=== PATIENT | female | born 1960 | race Caucasian/White ===

== ENCOUNTER 2023-10-17 16:42 | Emergency (ER) | payer OTHER, SELFPAY ==
[2023-10-17 16:45] VITALS: BP 156/88; PULSE 64; RESP 18; TEMP 36.3; O2SAT 98; BMI 30.4
--- NOTE | 2023-10-17 16:53 | ED_ITS ---
HPI - General Adult General Chief complaint: Headache/Migraine Stated complaint: Migraine Time Seen by Provider: 10/17/23 16:44 History of Present Illness HPI narrative: Patient is a pleasant 63-year-old female who has had a longstanding history of migraine headaches. She is on metoprolol to try and suppress them. She has an abortive medication of butalbital as well. She reports a headache today onset it has been typical for her migraines but significant in terms of discomfort, sh pablo is photophobic, describes it is in her frontal area. No nuchal rigidity. No thunderclap nature to her headache. She has been in the ER for medication in the past she reports. She has not had allergies to medicines. No focal neurologic complaints. She does typically get some visual changes some tingling in her hands bilaterally when she gets a migraine and this is occurring. No stiffness in the neck as mention. No vomiting Related Data Home Medications ?Medication ?Instructions ?Recorded ?Confirmed aspirin 325 mg tablet 325 mg PO DAILY 10/17/23 10/17/23 uawszxynas-yzpypiumiqick-sjlkmdie tab PO 10/17/23 50 mg-325 mg-40 mg tablet metoprolol succinate 50 mg 50 mg PO DAILY 10/17/23 10/17/23 tablet,extended release 24 hr Review of Systems Status of ROS: Reports: 6 or more systems reviewed and unremarkable except as noted in History and below PFSH [facility] Social History Smoking Status: Never smoker Do you use any of these nicotine containing products: None Second hand tobacco smoke exposure: No How often do you have a drink containing alcohol: monthly or less How often do you have six or more drinks on one occasion: Never AUDIT-C Alcohol total score: 1 Non-prescribed substance use: denies use Exam Narrative: Exam Narrative: Objective: Vital signs oral slightly elevated blood pressure, afebrile Moderate distress and discomfort she is alert orient x3, noncyanotic, just slightly pale. Patient moves all extremities, has no facial asymmetry, consider extraocular movements are intact. No pupillary abnormalities. Const: Vital Signs, click to edit/add: Vital Signs - 24 hr 10/17/23 16:45 10/17/23 18:08 10/17/23 18:15 Temperature 97.4 F L Pulse Rate 72 75 Pulse Rate [Right Pulse Oximeter] 64 Respiratory Rate 18 Blood Pressure Blood Pressure [Ri ght Upper Arm] 156/88 H Pulse Oximetry 98 95 100 Oxygen Delivery Me thod Room Air 10/17/23 18:25 10/17/23 18:30 10/17/23 18:45 Temperature Pulse Rate 74 68 72 Pulse Rate [Right Pulse Oximeter] Respiratory Rate Blood Pressure 138/77 Blood Pressure [Ri ght Upper Arm] Pulse Oximetry 100 91 98 Oxygen Delivery Me thod Course Vital Signs Vital signs: Initial Vital Signs Temperature 97.4 F L 10/17/23 16:45 Temperature Source Temporal Artery Scan 10/17/23 16:45 Pulse Rate 64 10/17/23 16:45 Respiratory Rate 18 10/17/23 16:45 Blood Pressure 156/88 H 10/17/23 16:45 Blood Pressure Mean 110 H 10/17/23 16:45 Blood Pressure Position Sitting 10/17/23 16:45 Pulse Oximetry 98 10/17/23 16:45 Oxygen Delivery Method Room Air 10/17/23 16:45 Vital Signs Temperature 97.4 F L 10/17/23 16:45 Pulse Rate 64 10/17/23 16:45 Respiratory Rate 18 10/17/23 16:45 Blood Pressure 156/88 H 10/17/23 16:45 Pulse Oximetry 98 10/17/23 16:45 Oxygen Delivery Method Room Air 10/17/23 16:45 Temperature 97.4 F L 10/17/23 16:45 Pulse Rate 72 10/17/23 18:45 Respiratory Rate 18 10/17/23 16:45 Blood Pressure 138/77 10/17/23 18:25 Pulse Oximetry 98 10/17/23 18:45 Oxygen Delivery Method Room Air 10/17/23 16:45 Medications Administered Medications: Discontinued Medications Generic Name Dose Route Start Last Admin Trade Name Freq PRN Reason Stop Dose Admin Diphenhydramine HCl 50 mg 10/17/23 16:51 10/17/23 17:19 Diphenhydramine 50 Mg/Ml Inj IVP 10/17/23 16:52 50 mg ONCE ONE Administration Sodium Chloride 1,000 mls @ 6,000 mls/hr 10/17/23 17:00 10/17/23 17:31 0.9 % Sodium Chloride 1000 Ml IV 10/17/23 17:09 6,000 mls/hr .Q10M ELEANOR Administration Metoclopramide HCl 10 mg/ 102 mls @ 306 mls/hr 10/17/23 16:51 10/17/23 17:19 Sodium Chloride IV 10/17/23 16:52 306 mls/hr ONCE ONE Administration Ketorolac Tromethamine 30 mg 10/17/23 16:51 10/17/23 17:18 Ketorolac 30 Mg/Ml Inj IVP 10/17/23 16:52 30 mg ONCE ONE Administration Morphine Sulfate 4 mg 10/17/23 17:54 10/17/23 18:19 Morphine 4 Mg/Ml Inj IVP 10/17/23 17:55 4 mg ONCE ONE Administration Medical Decision Making MDM Narrative Medical decision making narrative: 63-year-old female with a history of migraine headaches with a migraine-type headache. I think at this point will give her fluid, check her labs for completeness but also give her Toradol, Benadryl, Reglan. I think the fluid in the medication will help her headaches substantially will allow to go home rest light activity. Will have her follow up with regular doctor the next few days. Will do further workup pending her clinical response. Addendum 6:32 p.m. the patient got morphine feels a little better. At this point her labs look reassuring, her glucose nonfasting is a little elevated 170, she probably should have this retested fasting. Would recommend continue home medications, light activity at home. Will observe for little bit longer and then discharged home when she is feeling substantially better. Lab Data Labs: Lab Results 10/17/23 Range/Units 17:10 WBC 5.77 (4.50-11.00) K/uL RBC 4.42 (4.00-5.20) m/uL Hgb 13.1 (12.0-16.0) gm/dL Hct 39.5 (33.0-51.0) % MCV 89 (80-100) fL MCH 30 (26-34) pg MCHC 33 (32-36) gm/dL RDW Coeff of Jimbo 11.5 (11.5-15.5) % Plt Count 244 (140-440) K/uL Neut % (Auto) 76.2 H (42.0-72.0) % Lymph % (Auto) 19.8 L (20-44) % [place] % (Auto) 2.9 (0.0-11.0) % Eos % (Auto) 0.7 (0.0-7.0) % Baso % (Auto) 0.2 (0.0-3.0) % Neut # (Auto) 4.40 (1.7-7.0) K/uL Lymph # (Auto) 1.10 (0.90-2.90) K/uL [place] # (Auto) 0.20 (0.00-0.90) K/UL Eos # (Auto) 0.04 (0.00-0.50) K/uL Baso # (Auto) 0.01 (0.00-0.30) K/uL Abs Immat Gran (auto) 0.01 (0.00-0.30) K/uL Imm/Tot Granulo (auto) 0.2 % Sodium 146 (135-149) mmol/L Potassium 4.3 (3.6-5.1) mmol/L Chloride 109 (96-114) mmol/L Carbon Dioxide 21 (20-32) mmol/L Anion Gap 16 H (7-15) mEq/L BUN 14 (7-30) mg/dL Creatinine 0.6 (0.5-1.5) mg/dL Estimated Creat Clear 58.09 Estimated GFR 101 ml/min Glucose 170 H (60-115) mg/dL Calcium 9.6 (8.4-10.6) mg/dL C-Reactive Protein < 0.5 L (0.5-1.0) mg/dL Discharge Plan Discharge Clinical Impression: Migraine Patient Disposition: Home w/ Parent or Adult Condition: Improved Additional Instructions: Light activity, continue home medications as prescribed, follow up with regular doctor next few days, recommend light activity for the next 48 hours. Good amount of fluid intake. Recommend recheck fasting sugar as her blood sugar was 170. Activity Level: Light activity Discharge Diet: Regular Prescriptions: No Action aspirin 325 mg tablet 325 mg PO DAILY metoprolol succinate 50 mg tablet extended release 24 hr 50 mg PO DAILY dlvoariktj-fkdavdfzhmpiy-brhm 50-325-40 mg tablet PO Follow Up/Referrals: Kasandra Quevedo MD [Primary Care Provider] - Stand Alone Forms: [employer] Info Instructions
[2023-10-17] MEDS: KETOROLAC 30 MG/ML inj IVP (17:18)
[2023-10-17] MEDS: METOCLOPRAMIDE HCL 10 MG in 0.9 % SODIUM CHLORIDE 100 ml 100 ML 306 MG IV (17:19)
[2023-10-17] MEDS: diphenhydrAMINE 50 MG/ML inj IVP (17:19)
[2023-10-17] MEDS: 0.9 % SODIUM CHLORIDE 1000 ml 1,000 ML 6000 ML IV (17:31)
[2023-10-17 17:52] LABS: Basophils Absolute Auto 0.01 K/uL (0.00-0.30); Basophils Percent Auto 0.2 % (0.0-3.0); Eosinophils Absolute Auto 0.04 K/uL (0.00-0.50); Eosinophils Percent Auto 0.7 % (0.0-7.0); Hematocrit 39.5 % (33.0-51.0); Hemoglobin* 13.1 gm/dL (12.0-16.0); Immature Granulocytes Abs Auto 0.01 K/uL (0.00-0.30); Immature Granulocytes Pct Auto 0.2 %; Lymphocytes Percent Auto 19.8 % (20-44); Mean Corpuscular HGB Conc 33 gm/dL (32-36); Mean Corpuscular Hemoglobin 30 pg (26-34); Mean Corpuscular Volume 89 fL (80-100); Monocytes Percent Auto 2.9 % (0.0-11.0); Neutrophils Percent Auto 76.2 % (42.0-72.0); Platelet Count* 244 K/uL (140-440); RDW Coefficient of Variation % 11.5 % (11.5-15.5); Red Blood Count 4.42 m/uL (4.00-5.20); White Blood Count* 5.77 K/uL (4.50-11.00)
[2023-10-17 17:59] LABS: Slide Review Reflex No
[2023-10-17 18:08] VITALS: PULSE 72; O2SAT 95
[2023-10-17 18:13] LABS: Chloride* 109 mmol/L (96-114)
[2023-10-17 18:14] LABS: Potassium* 4.3 mmol/L (3.6-5.1); Sodium* 146 mmol/L (135-149)
[2023-10-17 18:15] VITALS: PULSE 75; O2SAT 100
[2023-10-17 18:16] LABS: Creatinine* 0.6 mg/dL (0.5-1.5); Est. Creatinine Clearance* 58.09; Estimated Glomerular Filt Rate 101 ml/min
[2023-10-17 18:17] LABS: Anion Gap 16 mEq/L (7-15); Blood Urea Nitrogen* 14 mg/dL (7-30); Carbon Dioxide* 21 mmol/L (20-32); Glucose* 170 mg/dL (60-115)
[2023-10-17 18:18] LABS: Calcium* 9.6 mg/dL (8.4-10.6)
[2023-10-17] MEDS: MORPHINE 4 MG/ML INJ IVP (18:19)
[2023-10-17 18:25] VITALS: BP 138/77; PULSE 74; O2SAT 100
[2023-10-17 18:28] LABS: C Reactive Protein* < 0.5 mg/dL (0.5-1.0)
[2023-10-17 18:30] VITALS: PULSE 68; O2SAT 91
[2023-10-17 18:45] VITALS: PULSE 72; O2SAT 98
== END 2023-10-17 19:15 | disposition home or self-care (01) ==
PROVIDERS: Emergency Provider Family Medicine; PCP Family Medicine
DX: G43.909 Migraine, unspecified, not intractable, without status migrainosus (principal)
CPT/HCPCS: 36415; 80048; 85025; 86140; 96374; 96375; 99283; 99284; J1200; J1885; J2270; J2765; J7030

== ENCOUNTER 2024-08-27 14:17 | Emergency (ER) | payer OTHER, SELFPAY ==
[2024-08-27 14:22] VITALS: BP 139/86; PULSE 65; RESP 20; TEMP 36.9; O2SAT 97
--- NOTE | 2024-08-27 14:57 | ED_ITS ---
HPI - General Adult General Chief complaint: Headache/Migraine Stated complaint: migraine Time Seen by Provider: 08/27/24 14:57 History of Present Illness HPI narrative: Pt reports on/ off headaches for weeks and hx of migraines . This AM developed a migraine that feels different . Symptoms started around 1000 and include numbness in both hands and right side of head (both resolved now), pain in back of head, radiating more to right side. Reports some vision issues but unable to endorse specifically what they are, just feels off . Did take 2 different migraine meds, ineffective. A& Ox4 in triage and neuros appear intact. 64-year-old woman presenting to the emergency department with headache with some atypical features Headache seems to have escalated over the last few weeks. Just keep coming and she is tired of it. Does have a longer history though of migraines. Today though began with typical aura so after initial Excedrin attempt still with pain took butalbital. Began to also experience some right-sided ?weirdness?. Just felt off on the right side of her face. No focal weakness. Was experiencing more pain in the bilateral posterior neck sounds like than usual. Sensation in the face now has faded. She was also tingling in her hands bilaterally. This is not an atypical symptom. That has also faded. She would just like relief of her headache this point. Has never had any head imaging. Related Data Home Medications ?Medication ?Instructions ?Recorded ?Confirmed aspirin 325 mg tablet 325 mg PO DAILY 10/17/2307/07 zlhkjxstwk-uxiphmcooiqzr-dijhrioc tab PO 10/17/23 50 mg-325 mg-40 mg tablet metoprolol succinate 50 mg 50 mg PO DAILY 10/17/23 tablet,extended release 24 hr citalopram 10 mg tablet 10 mg PO DAILY 08/27/2408/14 Allergies Allergy/AdvReac Type Severity Reaction Status Date / Time No Known Drug Allergies Allergy Verified 08/27/24 14:27 Review of Systems Status of ROS: Reports: 6 or more systems reviewed and unremarkable except as noted in History and below [facility] Social History Smoking Status: Never smoker Do you use any of these nicotine containing products: None Second hand tobacco smoke exposure: No How often do you have a drink containing alcohol: monthly or less How often do you have six or more drinks on one occasion: Never AUDIT-C Alcohol total score: 1 Non-prescribed substance use: denies use Exam Narrative: Exam Narrative: Generally appears rather uncomfortable. Photophobic. Cranial nerves 2-12 intact. Pupils are 3 mm and equal. Moving all extremities without difficulty. Sensation intact. No exacerbated pain to occipital nerve pressure. Does not appear to be demonstrating any deficits here today. Heart in regular rate and rhythm. Breathing easily. Const: Vital Signs, click to edit/add: Vital Signs - 24 hr 08/27/24 14:22 Temperature 98.4 F Pulse Rate [Pulse Oximeter] 65 Respiratory Rate 20 Blood Pressure [Ri ght Upper Arm] 139/86 Pulse Oximetry 97 Oxygen Delivery Me thod Room Air Documenting provider has reviewed patient's vital signs: yes Course Vital Signs Vital signs: Initial Vital Signs Temperature 98.4 F 08/27/24 14:22 Temperature Source Temporal Artery Scan 08/27/24 14:22 Pulse Rate 65 08/27/24 14:22 Respiratory Rate 20 08/27/24 14:22 Blood Pressure 139/86 08/27/24 14:22 Blood Pressure Mean 103 08/27/24 14:22 Blood Pressure Position Sitting 08/27/24 14:22 Pulse Oximetry 97 08/27/24 14:22 Oxygen Delivery Method Room Air 08/27/24 14:22 Vital Signs Temperature 98.4 F 08/27/24 14:22 Pulse Rate 65 08/27/24 14:22 Respiratory Rate 20 08/27/24 14:22 Blood Pressure 139/86 08/27/24 14:22 Pulse Oximetry 97 08/27/24 14:22 Oxygen Delivery Method Room Air 08/27/24 14:22 Temperature 98.4 F 08/27/24 14:22 Pulse Rate 65 08/27/24 14:22 Respiratory Rate 20 08/27/24 14:22 Blood Pressure 139/86 08/27/24 14:22 Pulse Oximetry 97 08/27/24 14:22 Oxygen Delivery Method Room Air 08/27/24 14:22 Medications Administered Medications: Discontinued Medications Generic Name Dose Route Start Last Admin Trade Name Freq PRN Reason Stop Dose Admin Diphenhydramine HCl 25 mg 08/27/24 15:13 08/27/24 15:30 Diphenhydramine 50 Mg/Ml Inj IVP 08/27/24 15:14 25 mg ONCE ONE Administration Sodium Chloride 1,000 mls @ 1,000 mls/hr 08/27/24 15:13 08/27/24 17:16 0.9 % Sodium Chloride 1000 Ml IV 08/27/24 16:12 Infused .Q1H ONE Infusion Ketorolac Tromethamine 30 mg 08/27/24 15:13 08/27/24 15:30 Ketorolac 30 Mg/Ml Inj IVP 08/27/24 15:14 30 mg ONCE ONE Administration Ondansetron HCl 4 mg 08/27/24 15:13 08/27/24 15:31 Ondansetron 2 Mg/Ml Inj IVP 08/27/24 15:14 4 mg ONCE ONE Administration Medical Decision Making MDM Narrative Medical decision making narrative: This on the surface sounds to be a typical migraine but escalation is perhaps significant. She does not have any notable deficits at this time. I would at least offer her basic head CT. I do not think this represents ischemic stroke symptoms other than what might exist typically in a migraine. Will also treat her pain with IV hydration and typical migraine cocktail. CT imaging of her head by my independent review showed large calcified mass in the mid posterior superior mid brain. INDICATION: Escalating migraine TECHNIQUE: Non-contrast CT of the head is submitted. COMPARISON: None. FINDINGS: Along the posterior superior aspect of the falx cerebri, there is a large partially calcified dural-based lesion that measures 4.6 x 4.4 x 4.3 cm (2/46 and /). There is mild surrounding parenchymal hypodensity in the left parietal lobe. Mild remodeling and hypodensity of the overlying parietal calvarium. No acute intracranial hemorrhage. No midline shift. Basal cisterns are widely patent. IMPRESSION: Large dural-based lesion along the posterior superior aspect of the falx cerebri measures 4.6 cm, and likely reflects a meningioma. There is mild hypodensity in the adjacent left parietal lobe, indicating local parenchymal edema. This can be further characterized with an MRI brain without and with contrast. Please note that all CT scans at this facility use dose modulation, iterative reconstruction, and/or weight-based dosing when appropriate to reduce radiation dose to as low as reasonably achievable. Dictated by Jose Gardner MD @ 08/27/2024 3:59:31 PM Treatment with ketorolac diphenhydramine normal saline Zofran resulted in improvement in symptoms though still somewhat present, tolerable. Discussed concerns/findings as above with Ms. Newton I did discuss findings with Neurology and confirming proceeding with MRI of brain with and without contrast. I did review images of MRI. Large mass as noted above does appear to be contiguous with the meninges. Likely meningioma. No bleeding appreciated. Radiology over-read below INDICATION: Brain mass. COMPARISON: Five CT from earlier today. TECHNIQUE: Multiplanar T1, T2, FLAIR and diffusion-weighted imaging.. Post gadolinium T1 weighted sequences. Delete that gadolinium 15 cc IV. FINDINGS: Heterogeneous enhancing dural-based mass along the posterior falx and extending along the posterior medial parietal lobes bilaterally, left greater right most consistent with a meningioma. This mass measures 4.5 x 4 cm (series 10, image 82). Heterogeneous signal intensity and susceptibility artifact consistent with calcification better seen on CT. There is notable edema of the immediately adjacent parenchyma of the left parietal lobe. Meningioma extends into the posterior 3rd of the superior sagittal sinus. However, there is normal contrast filling of the remainder of the superior sagittal sinus both rostral and caudal to the mass No abnormal enhancement or enhanced lesions elsewhere. Normal brain parenchymal morphology. Scattered foci of T2/FLAIR signal hyperintensity within the white matter of frontal lobes are nonspecific and may represent chronic deep white matter small vessel ischemic changes or sequela migraine headache. No intracranial hemorrhage. No abnormal ventricular dilatation. Intracranial vascular flow voids are preserved. No mass effect or midline shift. No restricted diffusion to suggest acute ischemia. Developmental venous anomaly of the posterior left cerebellum which is an incidental finding. Bilateral orbits are unremarkable. Normal appearing sella. Visualized paranasal sinuses and mastoid air cells are unremarkable. IMPRESSION: 1. Heterogeneously enhancing dural-based mass along the posterior falx and extending along the posterior medial parietal lobes bilaterally, left greater than right consistent with a meningioma. Edema in the immediately adjacent parenchyma of the left parietal lobe. 2. Notable extension of meningioma into the posterior 3rd of superior sagittal sinus. However, there remains normal contrast filling of the superior sagittal sinus both rostral and caudal to the mass 3. No abnormal enhancement elsewhere. 4. No acute intracranial abnormality. Dictated by Semaj Lemus MD @ 08/27/2024 5:31:05 PM Discuss these findings and images were reviewed by neurosurgery in consult. They will be reaching out for next steps in care. Minimal edema and not recommended for steroids. See patient discharge plan for further discussion Stay well-hydrated. Stay active. Yes. Can take acetaminophen regularly dosed. Be seen for marked increase in uncontrolled pain, new and focal weakness or persistent loss of sensation, repeated vomiting. Today I did speak with Neurology and then Dr. Villa with neurosurgery through [facility]. Anticipate them reaching out to you to schedule an appointment for likely Sunday with him. Medical Records Medical records reviewed: Yes I reviewed the patient's medical records Discharge Plan Discharge Clinical Impression: Migraine, Meningioma Patient Disposition: Home w/ Parent or Adult Condition: Improved Additional Instructions: Stay well-hydrated. Stay active. Yes. Can take acetaminophen regularly dosed. Be seen for marked increase in uncontrolled pain, new and focal weakness or persistent loss of sensation, repeated vomiting. Today I did speak with Neurology and then Dr. Villa with neurosurgery through [facility]. Anticipate them reaching out to you to schedule an appointment for likely Sunday with him. Activity Level: No Restrictions Discharge Diet: Regular Prescriptions: No Action aspirin 325 mg tablet 325 mg PO DAILY metoprolol succinate 50 mg tablet extended release 24 hr 50 mg PO DAILY atbjdoxnur-nnlwtlonqfqlr-iefl 50-325-40 mg tablet PO citalopram 10 mg tablet 10 mg PO DAILY Follow Up/Referrals: Kasandra Quevedo MD [Primary Care Provider, [facility]] Stand Alone Forms: [employer] Info Instructions
--- NOTE | 2024-08-27 15:13 | CRLHL7_ITS ---
For Patients: As a result of the Century Cures Act, medical imaging exams and procedure reports are released immediately into your electronic medical record. You may view this report before your referring provider. If you have questions, please contact your health care provider. INDICATION: Escalating migraine TECHNIQUE: Non-contrast CT of the head is submitted. COMPARISON: None. FINDINGS: Along the posterior superior aspect of the falx cerebri, there is a large partially calcified dural-based lesion that measures 4.6 x 4.4 x 4.3 cm (46 and ). There is mild surrounding parenchymal hypodensity in the left parietal lobe. Mild remodeling and hypodensity of the overlying parietal calvarium. No acute intracranial hemorrhage. No midline shift. Basal cisterns are widely patent. IMPRESSION: Large dural-based lesion along the posterior superior aspect of the falx cerebri measures 4.6 cm, and likely reflects a meningioma. There is mild hypodensity in the adjacent left parietal lobe, indicating local parenchymal edema. This can be further characterized with an MRI brain without and with contrast. Please note that all CT scans at this facility use dose modulation, iterative reconstruction, and/or weight-based dosing when appropriate to reduce radiation dose to as low as reasonably achievable. Dictated by Jose Gardner MD @ 08/27/2024 3:59:31 PM (Electronically Signed)
[2024-08-27] MEDS: KETOROLAC 30 MG/ML inj IVP (15:30)
[2024-08-27] MEDS: diphenhydrAMINE 50 MG/ML inj 25 MG IVP (15:30)
[2024-08-27] MEDS: 0.9 % SODIUM CHLORIDE 1000 ml 1,000 ML IV (15:30)
[2024-08-27] MEDS: ONDANSETRON 2 MG/ML inj 4 MG IVP (15:31)
--- OUTSIDE RECORDS SUMMARY | 2024-08-27 16:18 | XMS_ITS | Clinical Summary ---
Author Organization [employer] [facility] [facility] Address [address] [place] [id number] Care Team Providers Care Control Officer Name Role Phone Kasandra Quevedo MD Primary Care Provide r Allergies No known active allergies Medications cetirizine (ZYRTEC) 10 mg tabletIndicatio ns:Migraine without status migrainosus, not intractable, unspecified migraine type Take 1 tablet by mouth once daily. 0 8 Active metroNIDAZOLE (METROGEL) 0.75 % gelIndications: Rosacea Apply topically to affected area(s) 2 times daily. 45 g 3 1 Active desonide 0.05% (TRIDESILON 0.05% CREAM) 0.05 % creamIndication s:Eyelid dermatitis, allergic/contac t Apply topically to affected area(s) two times daily. 15 g 1 3 Active metoprolol succinate (TOPROL XL) 50 mg sustained-relea se tabletIndicatio ns:Migraine without aura and without status migrainosus, not intractable Take 1 Tablet (50 mg) by mouth once daily. 100 Tablet 3 5 Active acetaminophen-c affeine-butalbi pat (FIORICET) 325-40-50 mgIndications:M igraine without aura and without status migrainosus, not intractable Take 1 Tablet by mouth every 4 hours if needed for Migraine. Max 6 doses per day. Max acetaminophen dose 4000mg in 24 hrs. 30 Tablet 2 5 Active citalopram (CELEXA) 10 mg tabletIndicatio ns:Generalized anxiety disorder Take 1 Tablet (10 mg) by mouth once daily in the morning. 90 Tablet 3 5 Active Active Problems Problem Noted Date Diagnosed Date Family history of diabetes mellitus 02/22/2016 Colon polyp 04/26/2011 Overview (01/12/2022): Colonoscopy 04/2011 polyp repeat in 5 years Colonoscopy 07/2016 polyp repeat in 5 years Colonoscopy 12/2021 normal, repeat in 7-10 years Acute gastritis without mention of hemorrhage Migraine, unspecified, witho ut mention of intractable migraine without mention of status migrainosus 06/29/2006 Rosacea 06/29/2006 Resolved Problems Problem Noted Date Diagnosed Date Resolved Date Globus sensation 09/27/2010 02/08/2011 Encounters Date Type Department Care Team Description 06/13/2024 10:05 AM WINTER SPORTS MANAGER Office Visit [facility] [address] [place] [address] Kasandra Quevedo MD Physical (64 yo Female) 06/13/2024 9:40 AM WINTER SPORTS MANAGER Ancillary Procedure [facility] [address] [place] [address] 06/13/2024 Travel 06/08/2024 Travel from Last 3 Months Immunizations Immunization Administration Dates Next Due AMB Influenza, IIV3 (Age >=3 years)(Flu Clinic Only) 02/10/2011,02/11/2010 AMB Influenza, IIV4 PF (=>6 mos Flulaval,Fluzone Fluarix)(Flu Clinic Only) 02/05/2020,02/27/2019,02/26/2018,2016 COVID-19 vaccine ([employer] [facility] [employer] 30mcg/0.3mL) PF, MDV 03/07/2021,08/03/2020,07/13/2020 DT (Age < 7 years) 02/14/2002 INFLUENZA, IIV3 PF (AGE >= 6 MO) 12/24/2023 Influenza, IIV3 (Age >=3 years) 03/14/2013,02/22 Influenza, IIV4 02/05/2023,,02/22/2016,2014,12/29/2013 Influenza, IIV4 (=>6mos) MDV 01/24/2022 Influenza,LAIV4 Live Intrana juan (Flumist) 02/04/2009 Tdap 07/07/2022,02/23/2012 Zoster (Shingrix-RZV, recombinant) 06/30/2019, Family History Medical History Relation Name Comments Diabetes Father age 80 Other Father headaches Cancer Mother Lung Hypertension Mother Diabetes Paternal Grandfather Anesthesia Problem No Family History Blood Disease No Family History Cancer-breast No Family History Cancer-ovarian No Family History Relation Name Status Comments Brother 1 Alive Brother 2 Alive Father Alive Maternal Grandfather Maternal Grandmother Mother Alive Paternal Grandfather Paternal Grandmother Sister Alive Social History Tobacco Use Types Packs/Day Years Used Date Smoking Tobacco: Never Passive Smoke Exposure: Never Smokeless Tobacco: Never Tobacco Cessation:Counseling Given: Not Answered Alcohol Use Standard Drinks/Week Comments Not Currently 0 (1 standard drink = 0.6 oz pur e alcohol) rare use PHQ-2 Answer Date Recorded PHQ-2 TOTAL SCORE 1 04/08/2024 Social Connections Answer Date Recorded Do you often feel lonely or isolated from those around you? 0 06/14/2023 Financial Resource Strain Answer Date R ecorded Difficulty of Paying Living Expenses 3 06/14/2023 Difficulty of Paying Living Expenses Not on file 06/14/2023 Food Insecurity Answer Date Recorded Do you worry your food will run out before you are able to buy more? 1 06/14/2023 Transportation Needs Answer Date Record ed Does lack of transportation keep you from medica l appointments? 1 06/14/2023 Does lack of transportation keep you from work, meetings or getting things that you need? 1 06/14/2023 Housing Stability Answer Date Recorded What is your housing situation today? 1 06/14/2023 Utilities Answer Date Recorded Do you have trouble paying f or utilities (for example, heat, electricity, water, phone)? 1 06/14/2023 Comments No Sex and Gender Information Value Date Recorded Sex Assigned at Not on file Legal Sex Female 5:41 AM WINTER SPORTS MANAGER Gender Identity Not on file Sexual Orientation Not on file Obstetrics History Para Term AB IAB SAB Ectopic Multiple Livin g Live Births 0 0 0 0 0 0 0 0 0 0 Last Filed Vital Signs Vital Sign Reading Time Taken Comments Blood Pressure 128/86 06/13/2024 10:24 AM WINTER SPORTS MANAGER Pulse 58 06/13/2024 10:24 AM WINTER SPORTS MANAGER Temperature 37 C (98.6 F) 03/19/2020 10:35 AM WINTER SPORTS MANAGER Respiratory Rate 16 03/24/2020 2:40 PM WINTER SPORTS MANAGER Oxygen Saturation 97% 06/13/2024 10:24 AM WINTER SPORTS MANAGER Inhaled Oxygen Concentration - - Weight 93.4 kg (206 lb) 06/13/2024 10:24 AM WINTER SPORTS MANAGER Height 167.6 cm (5' 6) 06/13/2024 10:24 AM WINTER SPORTS MANAGER Body Mass Index 33.25 06/13/2024 10:24 AM WINTER SPORTS MANAGER Plan of Treatment Health Maintenance Due Date Last Done Comments HIV for age 15-65 1975 Pneumococcal series for age 50+ (1 of 1 - PCV) 2010 Depression screening for age 12+ 04/08/2025 04/08/20 BMI (ht and wt on same day) for age 18+ 06/13/2025 06/13/2024, 06/14/2023, 02/06/2023, Additional history exists Mammogram for age 45-75 06/13/2025 06/13/19 25, 05/28/2023, 01/09/2022, Additional history exists Pap test for age 21-65 12/17/2025 , 12/17/2020, 02/22/2017, Additional history exists Lipids for age 45-75 01/10/2027 01/10/2022, 03/07/2019, 03/22/2018, Additional history exists Colonoscopy through age 75 01/12/202901/12, 01/12/2022, 01/12/2022, Additional history exists Tetanus booster 07/07/2032 07/07/2022, 1112/2011, 02/14/2002 [facility] RSV vaccine for adults or (1 - 1-dose 75+ series) 2035 Zoster (shingles) series for age 50+ Completed 06/30/2019, 03/25/2019 Hepatitis C screening for ag e 18-79 Completed 01/10/2022 Tdap Completed 07/07/2022, 02/23/2012 COVID-19 vaccine series Completed 12/24/19 24, 01/12/2023, 01/24/2022, Additional history exists Influenza Vaccine Completed 12/24/2023, , 01/24/2022, Additional history exists Procedures Procedure Name Priority Date/Time Associated Diagnosis Comments XR MAMMO RIA BILAT SCREEN Routine 06/13/2024 9:54 AM WINTER SPORTS MANAGER Encounter for screening mammogram for malignant neoplasm of breast COLONOSCOPY SCREENING Routine 01/12/2022 8:33 AM CDT History of colon polyps ANTI HCV Routine 01/10/2022 11:14 AM CDT Encounter for hepatitis C screening test for low risk patient LIPID PANEL W REFLEX MEASURED LDL Routine 01/10/2022 11:14 AM CDT Lipid screening HPV HIGH RISK Routine 12/17/2020 10:00 AM CDT Screening for cervical cancer from Last 3 Months or Most Recently Relevant to Health Maintenance Results * XR MAMMO RIA BILAT SCREEN (06/13/2024 9:54 AM WINTER SPORTS MANAGER) Anatomical Region Laterality Modality BREASTS, Breast Left, Breast Right Bilateral Mammography Impressions 06/13/2024 12:48 PM WINTER SPORTS MANAGER There is no radiographic evidence for malignancy. Recommend annual mammograms. MAMMOGRAM ASSESSMENT: ACR 1 Negative PATIENTS: You will also receive a letter with your examination results in an easy to read format. If you have questions about your results, please contact your referring provider. Narrative 06/13/2024 12:48 PM WINTER SPORTS MANAGER For Patients: As a result of the Century Cures Act, medical imaging exams and procedure reports are released immediately into your electronic medical record. You may view this report before your referring provider. If you have questions, please contact your health care provider. XR MAMMO RIA BILAT SCREEN [[id number]] CLINICAL HISTORY: This is an asymptomatic 64 y.o. patient. INDICATION FOR EXAM: Mammogram Screening. TECHNIQUE: CC and MLO views were obtained. This study was evaluated with the assistance of Computer-Aided Detection. Breast Tomosynthesis was used in interpretation. COMPARISON FILM: Yes 05/28/23 [facility] 01/09/22 [facility] FINDINGS: The breasts are almost entirely fatty. There are no dominant masses, suspicious micro calcifications or areas of architectural distortion. us Kasandra Quevedo MD MAMMO Final Result * COLONOSCOPY (01/12/2022 9:32 AM CDT) 01/12/2022 9:32 AM CDT Narrative Transcriptions Felix Burgos MD - 01/12/2022 10:06 AM CDT Patient Name: Ingrid Newton Procedure Date: 01/12/2022 Gender: Female Date of : 1960 Admit Type: Outpatient Procedure: Colonoscopy Proceduralist: Felix Burgos MD , Elina Juarez, RN (Nurse), Tiffany Vidales (Nurse) Referring MD: Felix Burgos Indications/Pre-Op Diagnosis: High risk colon cancer surveillance:Personal history of adenoma less than 10 mm in size, Last colonoscopy: July 2016 Medications: Fentanyl 100 micrograms IV, Midazolam 4 mgIV Procedure Description: The patient had risks, benefits and alternatives explained to andgave informed consent. The patient had a stable cardiopulmonary status and judged an adequate candidate for conscious sedation. The colonoscope was passed through the anus and advanced to thececum, identified by appendiceal orifice and ileocecal valve. Thecolonoscopy was performed without difficulty. The patient tolerated the procedure well. The quality of the bowel preparation was good. The ileocecal valve, appendiceal orifice, and rectum were photographed. Complications: No immediate complications. Estimated Blood Loss & Specimen: Estimated blood loss: none. Specimen collected - None Findings: The colon (entire examined portion) was moderately redundant. The exam was otherwise without abnormality. Impressions/Post-Op Diagnosis: - Redundant colon. - The examination was otherwise normal. - No specimens collected. Recommendation: - Patient has a contact number available for emergencies. The signsand symptoms of potential delayed complications were discussed with the patient. Return to normal activities tomorrow. Written discharge instructions were provided to the patient. - Continue present medications. - Repeat colonoscopy in 7-10 years for surveillance. Moderate Sedation: A time out was performed before the procedure. Moderate (conscious) sedation was administered by the endoscopy nurse and supervised bythe endoscopist. The following parameters were monitored: oxygensaturation, heart rate, blood pressure, EKG, CO2, respiratory rate, adequacy of pulmonary ventilation and reponse to care. Please refer to the patient's medical record flowsheets and nursing notes for moderate sedation details. Total physician intraservice time was 15 minutes. Felix Burgos MD 01/12/2022 10:06:31 AM This report has been signed electronically. Note Initiated On: 01/12/2022 9:32 AM Procedure Code(s): --- Professional --- 68938, Colonoscopy, flexible; diagnostic, including collection of specimen(s) bybrushing or washing, when performed (separateprocedure) Diagnosis Code(s): --- Professional --- Z86.010, Personal history of colonicpolyps Q43.8, Other specified congenitalmalformations of intestine CPT copyright 2020 [employer]. All rights reserved. The codes documented in this report are preliminary and upon water system operator reviewmay be revised to meet current compliance requirements. Scope In: 9:44:30 AM Scope Withdrawal Time 0 hours 6 minutes 37 seconds Scope Out: 9:58:55 AM us Felix Burgos MD PROCEDURE ORD Final Res ult * (ABNORMAL) LIPID PANEL W REFLEX MEASURED LDL (01/10/2022 11:14 AM CDT) CHOLESTEROL,TOTAL 208(H) 100 - 199 mg/dL 01/11/2022 7:14 AM CDT [facility] TRIGLYCERIDES 74 <150 mg/dL 01/11/2022 7:14 AM CDT [facility] HDL CHOLESTEROL 65 >40 mg/dL 7:14 AM CDT [facility] NON-HDL CHOLESTEROL 143 <145 mg/dl 01/11/2022 7:14 AM CDT [facility] CHOL/HDL RATIO 3.20 <4.50 01/11/2022 7:14 AM CDT [facility] LDL CHOLESTEROL 128 <=130 mg/dL 01/11/2022 7:14 AM CDT [facility] VLDL CHOLESTEROL 15 <=30 mg/dL 01/11/2022 7:14 AM CDT [facility] PROVIDER ORDERED STATUS RANDOM 01/11/2022 7:14 AM CDT [facility] Blood BLOOD SPECIMEN / Unknown Venipuncture / Unknown 01/10/2022 11:14 AM CDT 01/10/2022 11:17 AM CDT Kasandra Quevedo MD CHEMISTRY Final Result [facility] [address] [place] [address], [place] * ANTI HCV (01/10/2022 11:14 AM CDT) HEPATITIS C ANTIBODY Non-React bebe Non-React bebe 01/11/2022 3:45 PM CDT [facility] Comment:Antibodies to HCV no t detected; does not exclude the possibility of exposure to HCV. Blood BLOOD SPECIMEN / Unknown Venipuncture / Unknown 01/10/2022 11:14 AM CDT 01/10/2022 11:17 AM CDT Kasandra Quevedo MD SEND OUTS Final Result [facility] [address] * HPV HIGH RISK (12/17/2020 10:00 AM CDT) TYPE 16 Negative Negative 12/22/2020 4:14 PM CDT [facility] TYPE 18 Negative Negative 12/22/2020 4:14 PM CDT [facility] OTHER HIGH RISK TYPES Negative Negative 12/22/2020 4:14 PM CDT [facility] Other (Cervical) Non-Blood / Unknown 12/17/2020 10:00 AM CDT 12/21/2020 9:21 AM CDT Narrative [facility] - 12/22/2020 4:14 PM CDT HPV types 16, 18, 31, 33, 35, 39, 45, 51, 52, 56, 58, 59, 66 and 68 DNA were undetectable or below the pre-set threshold. Methodology: Elliot Nisreen 4800 HPV Test Kasandra Quevedo MD MICROBIOLOGY Final Result Performing Organization Address City/[facility] Co de Phone Number [facility] [address] from Last 3 Months or Most Recently Relevant to Health Maintenance Insurance [employer] [place] [id number] Care Teams Control Officer Relationship Specialty Start Date End Date Kasandra Quevedo MD [address] [place] [address] PCP - General 09/04/05
--- NOTE | 2024-08-27 16:24 | CRLHL7_ITS ---
For Patients: As a result of the Century Cures Act, medical imaging exams and procedure reports are released immediately into your electronic medical record. You may view this report before your referring provider. If you have questions, please contact your health care provider. INDICATION: Brain mass. COMPARISON: Five CT from earlier today. TECHNIQUE: Multiplanar T1, T2, FLAIR and diffusion-weighted imaging.. Post gadolinium T1 weighted sequences. Delete that gadolinium 15 cc IV. FINDINGS: Heterogeneous enhancing dural-based mass along the posterior falx and extending along the posterior medial parietal lobes bilaterally, left greater right most consistent with a meningioma. This mass measures 4.5 x 4 cm (series 10, image 82). Heterogeneous signal intensity and susceptibility artifact consistent with calcification better seen on CT. There is notable edema of the immediately adjacent parenchyma of the left parietal lobe. Meningioma extends into the posterior 3rd of the superior sagittal sinus. However, there is normal contrast filling of the remainder of the superior sagittal sinus both rostral and caudal to the mass No abnormal enhancement or enhanced lesions elsewhere. Normal brain parenchymal morphology. Scattered foci of T2/FLAIR signal hyperintensity within the white matter of frontal lobes are nonspecific and may represent chronic deep white matter small vessel ischemic changes or sequela migraine headache. No intracranial hemorrhage. No abnormal ventricular dilatation. Intracranial vascular flow voids are preserved. No mass effect or midline shift. No restricted diffusion to suggest acute ischemia. Developmental venous anomaly of the posterior left cerebellum which is an incidental finding. Bilateral orbits are unremarkable. Normal appearing sella. Visualized paranasal sinuses and mastoid air cells are unremarkable. IMPRESSION: 1. Heterogeneously enhancing dural-based mass along the posterior falx and extending along the posterior medial parietal lobes bilaterally, left greater than right consistent with a meningioma. Edema in the immediately adjacent parenchyma of the left parietal lobe. 2. Notable extension of meningioma into the posterior 3rd of superior sagittal sinus. However, there remains normal contrast filling of the superior sagittal sinus both rostral and caudal to the mass 3. No abnormal enhancement elsewhere. 4. No acute intracranial abnormality. Dictated by Semaj Lemus MD @ 08/27/2024 5:31:05 PM (Electronically Signed)
== END 2024-08-27 18:38 | disposition home or self-care (01) ==
PROVIDERS: Emergency Provider Family Medicine; PCP Family Medicine
DX: G43.909 Migraine, unspecified, not intractable, without status migrainosus (principal); D32.9 Benign neoplasm of meninges, unspecified; R20.2 Paresthesia of skin
CPT/HCPCS: 70450; 70553; 96361; 96374; 96375; 99284; 99285; A9575; J1200; J1885; J2405; J7030

== ENCOUNTER 2024-09-11 13:36 | Emergency (ER) | payer OTHER, SELFPAY ==
[2024-09-11] VITALS (18 sets, daily range): BP systolic 109–154; BP diastolic 70–79; PULSE 57–69; RESP 16–20; TEMP 36; O2SAT 91–99; BMI 32.5
--- OUTSIDE RECORDS SUMMARY | 2024-09-11 13:38 | XMS_ITS | Clinical Summary ---
Author Organization [employer] [employer] [facility] Address [address] [place] [address] Care Team Providers Care Net Trainer Name Role Phone Kasandra Quevedo MD Primary [...] daily in the morning. 90 Tablet 3 Active Active Problems Problem Noted Date Diagnosed Date Meningioma 09/02/2024 Family history of diabetes mellitus 02/22/2016 Colon [...] Encounters Date Type Department Care Team Description 09/11/2024 6:54 AM CDT Hospital Encounter [facility] [address] [place] [address] Meningioma (HC) 09/11/2024 Travel 09/10/2024 Orders Only [facility] [address] [place] [address] Kasandra Quevedo MD 1 scan: (1-Ord) NFLD-EKG-09/09/24 09/09/2024 3:30 PM CDT Office Visit [facility] [address] [place] [address] Kasandra Quevedo MD Pre-Op Exam (09/15/[address] Villa Bipartial craniotomy for resection of meningioma) 09/09/2024 Travel 09/04/2024 Travel 09/03/2024 Telephone [facility] [address] [place] [address] Ameena Mcdonough MD Imaging 09/02/2024 10:00 AM CDT Office Visit [facility] [address] [place] [phone] Melquiades Villa MD 09/02/2024 Orders Only [facility] [address] [place] [address] Melquiades Villa MD <No scans attached> 09/02/2024 Travel 08/29/2024 Travel 08/27/2024 Orders Only [facility] Scanner 1 scan: (1-Ord) [place], CT HEAD/BRAIN WO CON, 08/27/2024 08/27/2024 Orders Only [facility] Scanner 1 scan: (1-Ord) [place], MR HEAD/BRAIN WO/W CON, 08/27/2024 08/27/2024 Orders Only [facility] Scanner 1 scan: (1-Ord) [place], HEAD/BRAIN WO/W, 08/27/2024 08/27/2024 Orders Only [facility] Scanner 1 scan: (1-Ord) [facility], HEAD/BRAIN WO CON , 08/27/2024 06/13/2024 10:05 AM LEASE ADMINISTRATOR Office Visit [facility] [address] [place] [address] Kasandra Quevedo MD Physical (64 yo Female) 06/13/2024 9:40 AM LEASE ADMINISTRATOR Ancillary Procedure [facility] [address] [place] [address] 06/13/2024 Travel from Last 3 Months Immunizations Immunization Administration Dates Next Due AMB Influenza, IIV3 (Age >=3 years)(Flu Clinic Only) 02/10/2011,02/11/2010 AMB Influenza, IIV4 PF (=>6 mos Flulaval,Fluzone Fluarix)(Flu Clinic Only) 02/05/2020,02/27/2019,02/26/2018,2016 COVID-19 vaccine ([employer] NTTxtFeedback 30mcg/0.3mL) PF, MDV 03/07/2021,08/03/2020,07/13/2020 DT (Age < [...] or isolated from those around you? 0 09/04/2024 Financial Resource Strain Answer Date R ecorded Difficulty of Paying Living Expenses 3 09/04/2024 Difficulty of Paying Living Expenses Not on file 09/04/2024 Food Insecurity Answer Date Recorded Do you worry your food will run out before you are able to buy more? 1 09/04/2024 Transportation Needs Answer Date Record ed Does lack of transportation keep you from medica l appointments? 1 09/04/2024 Does lack of transportation keep you from work, meetings or getting things that you need? 1 09/04/2024 Housing Stability Answer Date Recorded What is your housing situation today? 1 09/04/2024 Utilities Answer Date Recorded Do you have trouble paying f or utilities (for example, heat, electricity, water, phone)? 1 09/04/2024 Comments No Sex and Gender Information Value Date Recorded Sex Assigned at Not on file Legal Sex Female 5:41 AM LEASE ADMINISTRATOR Gender Identity Not on file Sexual Orientation Not on file Obstetrics History Para Term AB IAB SAB Ectopic Multiple Livin g Live Births 0 0 0 0 0 0 0 0 0 0 Last Filed Vital Signs Vital Sign Reading Time Taken Comments Blood Pressure 159/63 09/11/2024 10:45 AM CDT Pulse 65 09/11/2024 10:45 AM CDT Temperature 36.7 C (98.1 F) 09/11/2024 7:45 AM CDT Respiratory Rate 12 09/11/2024 10:45 AM CDT Oxygen Saturation 100% 09/11/2024 10:45 AM CDT Inhaled Oxygen Concentration - - Weight 91.2 kg (201 lb) 09/09/2024 7:39 AM CDT Height 167.6 cm (5' 6) 09/09/2024 7:39 AM CDT Body Mass Index 32.44 09/09/2024 7:39 AM CDT Plan of Treatment Upcoming Encounters Date Type Department Care Team (Latest Contact Info) Description 09/14/2024 10:00 AM CDT Appointment [facility] [address] [place] [address] 09/15/2024 7:00 AM CDT Hospital Encounter [facility] [address], [place] [address] Melquiades Villa MD [address] [facility] [address] [place] [address] 09/15/2024 7:00 AM CDT - 09/15/2024 2:16 PM CDT Surgery [facility] [address] [place] [address] Melquiades Villa MD [address] [facility] [address] [place] [address] Biparietal craniotomy for resection of meningioma 09/15/2024 7:45 AM CDT Appointment [facility] [address] [place] [address] Scheduled Procedures Name Priority Associated Diagnoses Date/Ti me CRANIOTOMY INTRAOPERATIVE MRI Tier 2 Meningioma (HC) 09/15/2024 7:00 AM CDT Health Maintenance Due Date Last Done Comments HIV for age 15-65 1975 Pneumococcal series for age 50+ (1 of 1 - PCV) 2010 RSV vaccine for adults or (1 - Risk 60-74 years 1-dose series) 2020 Depression screening for age 12+ 04/08/2025 04/08/2024, 06/14/2023, 01/12/2022, Additional history exists Mammogram for age 45-75 06/13/2025 06/13/19 25, 05/28/2023, 01/09/2022, Additional history exists BMI (ht and wt on same day) for age 18+ 09/09/2025 09/09/2024, 06/13/2024, 06/14/2023, Additional history exists Pap test for age 21-65 12/17/2025 , 12/17/2020, 02/22/2017, Additional history exists Lipids for age 45-75 01/10/2027 01/10/2022, 03/07/2019, 03/22/2018, Additional history exists Colonoscopy through age 75 01/12/202901/12, 01/12/2022, 01/12/2022, Additional history exists Tetanus booster 07/07/2032 07/07/2022, 12/2011, 02/14/2002 ([facility] Zoster (shingles) series for age 50+ Completed 06/30/2019, 03/25/2019 Hepatitis C screening for age 18-79 Completed 01/10/2022 Tdap Completed 07/07/2022, 02/23/2012 COVID-19 vaccine series Completed 12/24/19, 01/12/2023, 01/24/2022, Additional history exists Influenza Vaccine Completed 12/24/2023, , 01/24/2022, Additional history exists Hepatitis B series for 19+ Aged Out N o longer eligible based on patient's age to complete this topic Procedures Procedure Name Priority Date/Time Associated Diagnosis Comments IR ANGIO CAROTID CEREBRAL BILATERAL Routine 09/11/2024 8:57 AM CDT Meningioma (HC) EKG 12 LEAD Routine 09/10/2024 9:46 AM CDT Preoperative examination [place] READING EKG - NO CHARGE, COMP ONLY Routine 09/10/2024 9:45 AM CDT Preoperative examination CBC W PLT NO DIFF Routine 09/09/2024 8:5 0 AM CDT Meningioma (HC) BASIC METABOLIC PANEL Routine 09/09/2024 8:50 AM CDT Meningioma (HC) PROTIME-INR Routine 09/09/2024 8:49 AM CDT Meningioma (HC) SCAN-CT INTERPRETATION 12:00 AM CDT SCAN-MRI INTERPRETATION 08/27/2024 12:00 AM CDT SCAN-MRI INTERPRETATION 08/27/2024 12:00 AM CDT SCAN-CT INTERPRETATION 12:00 AM CDT XR MAMMO RIA BILAT SCREEN Routine 06/13/2024 9:54 AM LEASE ADMINISTRATOR Encounter for screening mammogram for malignant neoplasm [...] Recently Relevant to Health Maintenance Results * IR ANGIO CAROTID CEREBRAL BILATERAL (09/11/2024 8:57 AM CDT) Anatomical Region Laterality Modality BRAIN X-Ray Angiograph y, Other, Other, Other Impressions 09/11/2024 9:51 AM CDT Diminished flow in the superior sagittal sinus in its proximal segment and complete occlusion at the site of the tumor and distal to it. The bulk of cerebral venous drainage is via enlarged cortical veins bilaterally, including the veins of Trolard. Small to moderate amount of vascular flow to the presumed parietal meningioma via branches of the middle meningeal arteries bilaterally. Findings were communicated to Dr. Villa at the conclusion of the examination. Ameena Mcdonough M.D. Neurointerventional Radiologist [facility] [place] Pager: Office/Referrals: [facility]: [email or web address] Narrative 09/11/2024 9:51 AM CDT PHYSICIAN: Ameena Mcdonough DATE: 09/11/2024. PROCEDURE: CEREBRAL ANGIOGRAM Selective catheter placement, right internal carotid artery, with angiography of the intracranial carotid circulation (CPT 37977) Selective catheter placement, right external carotid artery, with angiography of the external carotid circulation (CPT +34295) Selective catheter placement, left internal carotid artery, with angiography of the intracranial carotid circulation (CPT 27876) Selective catheter placement, left external carotid artery, with angiography of the external carotid circulation (CPT +23350) Selective catheter placement, right vertebral artery, with angiography of the vertebral circulation (CPT 08069) Selective catheter placement, left vertebral artery, with angiography of the vertebral circulation (CPT 21154) Ultrasound guidance for vascular access: right common femoral artery access (CPT +43926) Monitored conscious sedation: 34min (CPT 52729, CPT +89638) CLINICAL HISTORY: 64 year-old female with a meningioma invading the superior sagittal sinus presents for catheter angiography to assess the status of the superior sagittal sinus. MEDICATIONS: 1.5mg versed IV, 100mcg fentanyl IV, 4mg zofran, lidocaine for local anesthesia. CONSCIOUS SEDATION TIME: 34 min. SAMPLES: None. POST-PROCEDURE DIAGNOSIS: Diminished flow in the superior sagittal sinus in its proximal segment and complete occlusion at the site of the tumor and distal to it. The bulk of cerebral venous drainage is via enlarged cortical veins bilaterally, including the veins of Trolard. PROCEDURE: The risks, benefits and alternatives to cerebral angiogram were discussed with the patient and written informed consent was obtained. The patient was placed on the angio table and prepped and draped in the usual sterile fashion. TIME OUT was performed to confirm patient identity, materials and procedure type. Under physician supervision, midazolam and fentanyl were administered intravenously for moderate sedation. Pulse oximetry, heart rate, and blood pressure were continuously monitored by a trained, dedicated nurse. The physician who performed the procedure provided 34 minutes of intra-service time with the patient. 1% Xylocaine was utilized to anesthetize the skin. After successfully identifying a patent vessel and permanently archiving a picture for the patient's record, using ultrasound guidance a micropuncture needle was utilized with a single-wall puncture technique to perform a right common femoral percutaneous arterial puncture and a 5-British sheath was placed. Contrast was then injected via the sheath to assess the puncture site prior to placement of a closure device at the end of the procedure. Subsequently using a 5-British angled tip catheter and glidewire combination, selective catheterization was performed of the bilateral external, bilateral internal carotid arteries and bilateral vertebral arteries. Appropriate angiographic images were obtained. The catheter and sheath were then withdrawn and hemostasis was achieved with a closure device. Patient was returned to the recovery area in stable condition. FINDINGS: Right external carotid and internal carotid artery injections: There is diminished flow in the superior sagittal sinus in its proximal segment and complete occlusion at the site of the tumor and distal to it. The bulk of cerebral venous drainage is via enlarged cortical veins bilaterally, including the veins of Trolard. There is a small amount of vascular flow to the presumed parietal meningioma via branches of the right middle meningeal artery. The distal right internal carotid artery is normal. There is normal filling of the right anterior and middle cerebral arteries and their branches. The right posterior communicating artery is not patent. The anterior communicating artery is opacified from [id number]. Left external carotid and internal carotid artery injections: There is diminished flow in the superior sagittal sinus in its proximal segment and complete occlusion at the site of the tumor and distal to it. The bulk of cerebral venous drainage is via enlarged cortical veins bilaterally, including the veins of Trolard. There is a small to moderate amount of vascular flow to the presumed parietal meningioma via branches of the left middle meningeal artery. The distal left internal carotid artery is normal. There is normal filling of the left anterior and middle cerebral arteries and their branches. The left posterior communicating artery is not patent. The anterior communicating artery is not opacified from [id number]. Right vertebral artery injection: There is normal filling of the distal right vertebral artery, basilar artery, and posterior cerebral arteries bilaterally. There is also normal filling of the bilateral superior cerebellar, bilateral anterior-inferior cerebellar, and right posterior-inferior cerebellar arteries. Reflux filling of the distal left vertebral artery and its posterior-inferior cerebellar branch is not demonstrated. Left vertebral artery injection: There is normal filling of the distal left vertebral artery, basilar artery, and posterior cerebral arteries bilaterally. There is also normal filling of the bilateral superior cerebellar, bilateral anterior-inferior cerebellar, and left posterior-inferior cerebellar arteries. Reflux filling of the distal right vertebral artery and its posterior-inferior cerebellar branch is also demonstrated. Melquiades Villa MD IR Fi nal Result * EKG 12 LEAD (09/10/2024 9:46 AM CDT) Kasandra Quevedo MD EKG ORD Final Result * [place] READING EKG - NO CHARGE, COMP ONLY (09/10/2024 9:45 AM CDT) Kasandra Quevedo MD PB - PROVIDER READING S Final Result * CBC W PLT NO DIFF (09/09/2024 8:50 AM CDT) Pathologist [facility] WHITE BLOOD CELL COUNT 4.0 3.8 - 10.8 Thousand/u L [facility] RED BLOOD CELL COUNT 4.55 3.80 - 5.10 Million/uL [facility] HEMOGLOBIN 13.4 11.7 - 15.5 g/dL [facility] HEMATOCRIT 41.9 35.0 - 45.0 % [facility] MCV 92.1 80.0 - 100.0 fL [facility] MCH 29.5 27.0 - 33.0 pg [facility] MCHC 32.0 32.0 - 36.0 g/dL [facility] Comment: For adults, a slight decrease in the calculated MCHC value (in the range of 30 to 32 g/dL) is most likely not clinically significant; however, it should be interpreted with caution in correlation with other red cell parameters and the patient's clinical condition. RDW 12.8 11.0 - 15.0 % [facility] PLATELET COUNT 233 140 - 400 Thousand/u L [facility] MPV 10.5 7.5 - 12.5 fL [facility] Blood BLOOD SPECIMEN / Unknown 09/09/2024 8:50 AM CDT 09/09/2024 8:50 AM CDT Melquiades Villa MD HEMATOLOGY Fi nal Result Performing Organization Address City/[facility]/ZIP Co de Phone Number [employer] [facility] [address] [place] [address], [facility] [address] [place] [address] * BASIC METABOLIC PANEL (09/09/2024 8:50 AM CDT) [facility] GLUCOSE 88 65 - 99 mg/dL [facility] Comment: Fasting reference interval UREA NITROGEN (BUN) 16 7 - 25 mg/dL [facility] CREATININE 0.73 0.50 - 1.05 mg/dL [facility] EGFR 92 > OR = 60 mL/min/1. 73m2 [facility] BUN/CREATININE RATIO SEE NOTE: 6 - 22 (calc) [facility] Comment: Not Reported: BUN and Creatinine are within reference range. SODIUM 142 135 - 146 mmol/L [facility] POTASSIUM 5.0 3.5 - 5.3 mmol/L [facility] CHLORIDE 106 98 - 110 mmol/L [facility] CARBON DIOXIDE 29 20 - 32 mmol/L [facility] ELECTROLYTE BALANCE 7 7 - 17 mmol/L (calc) [facility] CALCIUM 9.6 8.6 - 10.4 mg/dL [facility] Blood BLOOD SPECIMEN / Unknown 09/09/2024 8:50 AM CDT 09/09/2024 8:50 AM CDT Melquiades Villa MD CHEMISTRY Fi nal Result Performing Organization Address [facility]/ZIP Co de Phone Number [employer] [facility] [address] [place] [address], [facility] [address] [place] [address] * PROTIME-INR (09/09/2024 8:49 AM CDT) INR 1.0 <1.3 09/09/2024 2:01 PM CDT [facility] PROTIME 11.0 10.6 - 12.4 sec 09/09/2024 2:01 PM CDT [facility] Blood BLOOD SPECIMEN / Unknown [facility] / Unknown 09/09/2024 8:49 AM CDT 09/09/2024 8:49 AM CDT Narrative [facility] - 09/09/2024 2:01 PM CDT Therapeutic Range 2.0-3.0 for most anticoagulated patients 2.5-3.5 or 4.0 for high risk patients The INR is only used for patients on stable oral anticoagulant therapy. It makes no significant contribution to the diagnosis or treatment of patients whose Protime is prolonged for other reasons. INR results are increased when heparin levels exceed 1.0 U/mL, which corresponds to an aPTT >125 seconds if the patient is on UFH. us Melquiades Villa MD HEMATOLOGY Fi nal Result [facility] [address] [place] [address], [place] * SCAN-MRI INTERPRETATION (08/27/2024 12:00 AM CDT) Only the most recent of2 resultswithin the time period is included. Anatomical Region Laterality Modality Other us Scanner OTHER Final Result * SCAN-CT INTERPRETATION (08/27/2024 12:00 AM CDT) Only the most recent of2 resultswithin the time period is included. Anatomical Region Laterality Modality Other us Scanner OTHER Final Result * XR MAMMO RIA BILAT SCREEN (06/13/2024 9:54 AM LEASE ADMINISTRATOR) Anatomical Region Laterality Modality BREASTS, Breast Left, Breast Right Bilateral Mammography Impressions 06/13/2024 12:48 PM LEASE ADMINISTRATOR There is no radiographic evidence for malignancy. Recommend annual mammograms. MAMMOGRAM ASSESSMENT: ACR 1 Negative PATIENTS: You will also receive a letter with your examination results in an easy to read format. If you have questions about your results, please contact your referring provider. Narrative 06/13/2024 12:48 PM LEASE ADMINISTRATOR For Patients: As a result of the Century Cures Act, medical imaging exams and procedure reports are released immediately into your electronic medical record. You may view this report before your referring provider. If you have questions, please contact your health care provider. XR MAMMO RIA BILAT SCREEN [[id number]] CLINICAL HISTORY: This is an asymptomatic 64 [...] Colonoscopy Proceduralist: Felix Burgos MD , Elina Juarez RN (Nurse), Tiffany Vidales (Nurse) Referring MD: [...] 9:32 AM Procedure Code(s): --- Professional --- 62270, Colonoscopy, flexible; diagnostic, including collection of specimen(s) bybrushing or washing, when performed (separateprocedure) Diagnosis Code(s): --- Professional --- Z86.010, Personal history of colonicpolyps Q43.8, Other specified congenitalmalformations of intestine CPT copyright 2020 [employer]. All rights reserved. The codes documented in this report are preliminary and upon sheet metal duct installer reviewmay be revised to meet current compliance requirements. Scope In: 9:44:30 AM Scope Withdrawal Time 0 hours 6 minutes 37 seconds Scope Out: 9:58:55 AM us Felix Burgos MD PROCEDURE ORD Final Res ult * (ABNORMAL) LIPID PANEL W REFLEX MEASURED LDL (01/10/2022 11:14 AM CDT) CHOLESTEROL,TOTAL 208(H) 100 - 199 mg/dL 01/11/2022 7:14 AM CDT [facility] TRIGLYCERIDES 74 <150 mg/dL 01/11/2022 7:14 AM CDT [facility] HDL CHOLESTEROL 65 >40 mg/dL 7:14 AM CDT [facility] NON-HDL CHOLESTEROL 143 <145 mg/dl 01/11/2022 7:14 AM CDT [facility] CHOL/HDL RATIO 3.20 <4.50 01/11/2022 7:14 AM CDT [facility] LDL CHOLESTEROL 128 <=130 mg/dL 01/11/2022 7:14 AM CDT [facility] VLDL CHOLESTEROL 15 <=30 mg/dL 01/11/2022 7:14 AM CDT [facility] PROVIDER ORDERED STATUS RANDOM 01/11/2022 7:14 AM CDT [facility] Blood BLOOD SPECIMEN / Unknown Venipuncture / Unknown 01/10/2022 11:14 AM CDT 01/10/2022 11:17 AM CDT Kasandra Quevedo MD CHEMISTRY Final Result Performing Organization Address City/[facility]/ZIP Co de Phone Number [facility] [address] [place] [address], * ANTI HCV (01/10/2022 11:14 AM CDT) HEPATITIS C ANTIBODY Non-React bebe Non-React bebe 01/11/2022 3:45 PM CDT [facility] Comment:Antibodies to HCV no t detected; does not exclude the possibility of exposure to HCV. Blood BLOOD SPECIMEN / Unknown Venipuncture / Unknown 01/10/2022 11:14 AM CDT 01/10/2022 11:17 AM CDT Kasandra Quevedo MD SEND OUTS Final Result Performing Organization Address City/[facility] Co de Phone Number [facility] [address] [place] [address], [place] * HPV HIGH RISK (12/17/2020 10:00 AM CDT) TYPE 16 Negative Negative 12/22/2020 4:14 PM CDT [facility] TYPE 18 Negative Negative 12/22/2020 4:14 PM CDT [facility] OTHER HIGH RISK TYPES Negative Negative 12/22/2020 4:14 PM CDT [facility] Other (Cervical) Non-Blood / Unknown 12/17/2020 10:00 AM CDT 12/21/2020 9:21 AM CDT Narrative [facility] - 12/22/2020 4:14 PM CDT HPV types 16, 18, 31, 33, 35, 39, 45, 51, 52, 56, 58, 59, 66 and 68 DNA were undetectable or below the pre-set threshold. Methodology: Elliot Nisreen 4800 HPV Test Kasandra Quevedo MD MICROBIOLOGY Final Result [employer] [facility] [address] [place] [address], from Last 3 Months or Most Recently Relevant to Health Maintenance Insurance * Guarantor: Ingrid Newton Account Type Relation to Patient Date of Phone Billing Address Personal/Family Self 1960 [address] [place] [address] [employer] Care Teams Net Trainer Relationship Specialty Start Date End Date Kasandra Quevedo MD [address] [place] [address] PCP - General 09/04/05
--- NOTE | 2024-09-11 14:30 | CRLHL7_ITS ---
For Patients: As a result of the Century Cures Act, medical imaging exams and procedure reports are released immediately into your electronic medical record. You may view this report before your referring provider. If you have questions, please contact your health care provider. INDICATION: Headaches. TECHNIQUE: CT of the head without contrast. Coronal and sagittal reformats are included. COMPARISON: Brain MRI from 08/27/2024. FINDINGS: An oval heavily calcified extra-axial mass along the posterior falx bilaterally which measures 4.4 x 4.5 centimeters in axial plane and 4.2 centimeters in craniocaudal plane. Local mass effect with deformity of the parasagittal parietal lobes and cingulate gyri. Adjacent hypoattenuation on the left, reflecting vasogenic edema. No acute intracranial hemorrhage. No CT evidence of acute ischemia. No midline shift or herniation. No acute osseous abnormalities. Mastoid air cells and paranasal sinuses are clear. Normal soft tissues. IMPRESSION: 1. A heavily calcified 4.5 centimeter posterior parafalcine meningioma. Local mass effect and adjacent vasogenic edema on the left. Please note that all CT scans at this facility use dose modulation, iterative reconstruction, and/or weight-based dosing when appropriate to reduce radiation dose to as low as reasonably achievable. Dictated by Silver Montgomery MD @ 09/11/2024 3:31:30 PM (Electronically Signed)
--- NOTE | 2024-09-11 14:31 | ED.GENADULT ---
HPI - General Adult General Date Seen: 09/11/24 Chief complaint: Headache/Migraine Stated complaint: Migraine Time Seen by Provider: 09/11/24 14:08 History of Present Illness HPI narrative: 64-year-old female with past medical history of gastric ulcers, recent diagnosis of brain tumor, who underwent a cerebral angiogram under moderate conscious sedation this morning by Dr. Mcdonough at [facility]. Per medical record dated 09/11/2024 from [facility] she underwent a cerebral angiogram. 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 DATE: 09/11/2024. ? PROCEDURE: CEREBRAL ANGIOGRAM ? Selective catheter placement, right internal carotid artery, with angiography of the intracranial carotid circulation (CPT 74792) Selective catheter placement, right external carotid artery, with angiography of the external carotid circulation (CPT +25415) Selective catheter placement, left internal carotid artery, with angiography of the intracranial carotid circulation (CPT 18274) Selective catheter placement, left external carotid artery, with angiography of the external carotid circulation (CPT +42730) Selective catheter placement, right vertebral artery, with angiography of the vertebral circulation (CPT 22247) Selective catheter placement, left vertebral artery, with angiography of the vertebral circulation (CPT 80909) Ultrasound guidance for vascular access: right common femoral artery access (CPT +62753) Monitored conscious sedation: 34min (CPT 97954, CPT +28508) ? CLINICAL HISTORY: 64 year-old female with a meningioma invading the superior sagittal sinus presents for catheter angiography to assess the status of the superior sagittal sinus. ? MEDICATIONS: 1.5mg versed IV, 100mcg fentanyl IV, 4mg zofran, lidocaine for local anesthesia. CONSCIOUS SEDATION TIME: 34 min. ? SAMPLES: None. ? POST-PROCEDURE DIAGNOSIS: Diminished flow in the superior sagittal sinus in its proximal segment and complete occlusion at the site of the tumor and distal to it. The bulk of cerebral venous drainage is via enlarged cortical veins bilaterally, including the veins of [place]. PROCEDURE: ? The risks, benefits and alternatives to cerebral angiogram were discussed with the patient and written informed consent was obtained. The patient was placed on the angio table and prepped and draped in the usual sterile fashion. TIME OUT was performed to confirm patient identity, materials and procedure type. ? Under physician supervision, midazolam and fentanyl were administered intravenously for moderate sedation. Pulse oximetry, heart rate, and blood pressure were continuously monitored by a trained, dedicated nurse. The physician who performed the procedure provided 34 minutes of intra-service time with the patient. 1% Xylocaine was utilized to anesthetize the skin. After successfully identifying a patent vessel and permanently archiving a picture for the patient's record, using ultrasound guidance a micropuncture needle was utilized with a single-wall puncture technique to perform a right common femoral percutaneous arterial puncture and a 5-Chinese sheath was placed. Contrast was then injected via the sheath to assess the puncture site prior to placement of a closure device at the end of the procedure. Subsequently using a 5-Chinese angled tip catheter and glidewire combination, selective catheterization was performed of the bilateral external, bilateral internal carotid arteries and bilateral vertebral arteries. Appropriate angiographic images were obtained. The catheter and sheath were then withdrawn and hemostasis was achieved with a closure device. Patient was returned to the recovery area in stable condition. FINDINGS: ? Right external carotid and internal carotid artery injections: ? There is diminished flow in the superior sagittal sinus in its proximal segment and complete occlusion at the site of the tumor and distal to it. The bulk of cerebral venous drainage is via enlarged cortical veins bilaterally, including the veins of [place]. ? There is a small amount of vascular flow to the presumed parietal meningioma via branches of the right middle meningeal artery. ? The distal right internal carotid artery is normal. There is normal filling of the right anterior and middle cerebral arteries and their branches. The right posterior communicating artery is not patent. The anterior communicating artery is opacified from [id number]. Left external carotid and internal carotid artery injections: ? There is diminished flow in the superior sagittal sinus in its proximal segment and complete occlusion at the site of the tumor and distal to it. The bulk of cerebral venous drainage is via enlarged cortical veins bilaterally, including the veins of [place]. ? There is a small to moderate amount of vascular flow to the presumed parietal meningioma via branches of the left middle meningeal artery. ? The distal left internal carotid artery is normal. There is normal filling of the left anterior and middle cerebral arteries and their branches. The left posterior communicating artery is not patent. The anterior communicating artery is not opacified from [id number]. ? Right vertebral artery injection: ? There is normal filling of the distal right vertebral artery, basilar artery, and posterior cerebral arteries bilaterally. There is also normal filling of the bilateral superior cerebellar, bilateral anterior-inferior cerebellar, and right posterior-inferior cerebellar arteries. Reflux filling of the distal left vertebral artery and its posterior-inferior cerebellar branch is not demonstrated. ? Left vertebral artery injection: ? There is normal filling of the distal left vertebral artery, basilar artery, and posterior cerebral arteries bilaterally. There is also normal filling of the bilateral superior cerebellar, bilateral anterior-inferior cerebellar, and left posterior-inferior cerebellar arteries. Reflux filling of the distal right vertebral artery and its posterior-inferior cerebellar branch is also demonstrated. IMPRESSION: ? Diminished flow in the superior sagittal sinus in its proximal segment and complete occlusion at the site of the tumor and distal to it. The bulk of cerebral venous drainage is via enlarged cortical veins bilaterally, including the veins of [place]. ? Small to moderate amount of vascular flow to the presumed parietal meningioma via branches of the middle meningeal arteries bilaterally She reports that shortly after her angiogram she was laying down in bed. They had her lay flat for couple of hours apparently to protect her puncture site. She started developed a fairly severe generalized headache. It is similar to the 1 that brought her to the ER couple of weeks ago. No other symptoms with this. No nausea. No double vision. No focal numbness or weakness in her arms or legs. No confusion. No neck pain. She was able to discharge home from [facility] but had progressive worsening of her headache so came back to the ER desiring pain control. Related Data Home Medications ?Medication ?Instructions ?Recorded ?Confirmed bvayokozch-nhibqyduszbre-lwbzwtup tab PO 10/17/23 50 mg-325 mg-40 mg tablet metoprolol succinate 50 mg 50 mg PO DAILY 10/17/23 09/11/24 tablet,extended release 24 hr citalopram 10 mg tablet 10 mg PO DAILY 08/27/24 09/11/24 cetirizine 10 mg capsule (All Day 10 mg PO DAILY PRN 09/11/24 09/11/24 Allergy (cetirizine)) Previous Rx's ?Medication ?Instructions ?Recorded hydrocodone 5 mg-acetaminophen 325 1 - 2 tab PO Q4-6H PRN pain #10 09/11/24 mg tablet tabs ondansetron 4 mg disintegrating 4 mg PO Q8H PRN nausea and 09/11/24 tablet vomiting #10 tabs Allergies Allergy/AdvReac Type Severity Reaction Status Date / Time No Known Drug Allergies Allergy Verified 09/11/24 13:40 PFSH PFSH Social History Smoking Status: Never smoker Do you use any of these nicotine containing products: None Second hand tobacco smoke exposure: No How often do you have a drink containing alcohol: monthly or less How often do you have six or more drinks on one occasion: Never AUDIT-C Alcohol total score: 1 Non-prescribed substance use: denies use Exam Narrative: Exam Narrative: Constitutional: Appears well-developed and well-nourished. Alert. Conversant. Non toxic. HENT: Head: Atraumatic. Nose: Nose normal. Mouth/Throat: Oral mucosa is clear and moist. no trismus. Pharynx normal Eyes: Conjunctivae normal. EOM normal. Pupils equal, round, and reactive to light. No scleral icterus. Neck: Normal range of motion. Neck supple. No tracheal deviation present. No stiffness. Cardiovascular: Normal rate, regular rhythm. No gallop. No friction rub. No murmur heard. Symmetric radial artery pulses Pulmonary/Chest: Effort normal. No stridor. No respiratory distress. No wheezes. No rales. No rhonchi . No tenderness. Abdominal: Soft. Bowel sounds normal. No distension. No mass. No tenderness. No rebound. No guarding. Musculoskeletal: RUE: Normal range of motion. No tenderness. No deformity LUE: Normal range of motion. No tenderness. No deformity RLE: Normal range of motion. No edema. No tenderness. No deformity LLE: Normal range of motion. No edema. No tenderness. No deformity Neurological: Mental status normal. Attention normal. Alert and oriented x3. GCS 15. Memory normal. Speech fluent. Cognition normal. Cranial Nerves intact II-XII except I did not formally test gag or visual acuity. EOMI. Palate elevates symmetrically and tongue protrudes in the midline. Strength: 5/5 trapezius on the right and left 5/5 deltoid on the right and left 5/5 biceps on the right and left 5/5 triceps on the right and left 5/5 media marketing coordinator on the right and left 5/5 thumb opposition on the right and left 5/5 finger abduction on the right and left 5/5 hip flexors (L3) on the right and left 5/5 quadriceps (L4) on the right and left 5/5 tibialis anterior on the right and left 5/5 EHL (L5) on the right and left 5/5 gastrocnemius (S1) on the right and left 5/5 hamstring on the right and left Sensation intact to light touch in both upper extremities (C4-T1) Sensation intact to light touch in Both lower extremities (L4-S1). Finger to nose and coordination normal. Gait normal. Skin: No rash. Blair, warm, well perfused. Psychiatric: Normal mood. Normal affect. Const: Vital Signs, click to edit/add: Vital Signs - 24 hr 09/11/24 13:41 09/11/24 14:11 09/11/24 14:12 Temperature 96.8 F L Pulse Rate 63 64 Pulse Rate [Pulse Oximeter] 69 Respiratory Rate 20 Blood Pressure 132/70 Blood Pressure [Ri ght Upper Arm] 154/79 H Pulse Oximetry 99 98 98 Oxygen Delivery Me thod Room Air 09/11/24 14:15 09/11/24 14:30 09/11/24 14:45 Temperature Pulse Rate 64 61 63 Pulse Rate [Pulse Oximeter] Respiratory Rate Blood Pressure Blood Pressure [Ri ght Upper Arm] Pulse Oximetry 98 98 98 Oxygen Delivery Me thod 09/11/24 15:00 09/11/24 15:13 09/11/24 15:15 Temperature Pulse Rate 67 66 64 Pulse Rate [Pulse Oximeter] Respiratory Rate 16 Blood Pressure 134/71 Blood Pressure [Ri ght Upper Arm] Pulse Oximetry 96 99 99 Oxygen Delivery Me thod Room Air 09/11/24 15:30 09/11/24 15:45 09/11/24 16:00 Temperature Pulse Rate 63 62 62 Pulse Rate [Pulse Oximeter] Respiratory Rate Blood Pressure Blood Pressure [Ri ght Upper Arm] Pulse Oximetry 95 94 92 Oxygen Delivery Me thod 09/11/24 16:02 09/11/24 16:15 09/11/24 16:30 Temperature Pulse Rate 62 68 57 L Pulse Rate [Pulse Oximeter] Respiratory Rate Blood Pressure 125/76 Blood Pressure [Ri ght Upper Arm] Pulse Oximetry 92 98 91 Oxygen Delivery Me thod 09/11/24 16:45 09/11/24 17:00 09/11/24 17:02 Temperature Pulse Rate 60 59 L 58 L Pulse Rate [Pulse Oximeter] Respiratory Rate Blood Pressure 109/72 Blood Pressure [Ri ght Upper Arm] Pulse Oximetry 92 91 95 Oxygen Delivery Me thod Course Course ED Course: Recheck-headache fairly improved down to a 5/10 after fentanyl Reevaluation(s) Reevaluation #1: Recheck-CT negative my read. Consult placed for IR discussion through [facility]. Recheck-discussed with Dr. Mcdonough. He is reassured that the head CT is normal. He suspect the headache is probably triggered by the intracranial chronic dressed which can happen sometimes after formal angiogram. He recommends supportive care and that if the patient's headache is better she would be safe to discharge and follow up next week with her neurosurgeon. Reevaluation #2: Recheck-headache improved but not resolved after 1st meds. Requests a little bit more medication. After discussion of options, We administered [place]. Recheck-headache substantially improved after [place]. She feels comfortable discharging home with her . Vital Signs Vital signs: Initial Vital Signs Temperature 96.8 F L 09/11/24 13:41 Temperature Source Temporal Artery Scan 09/11/24 13:41 Pulse Rate 69 09/11/24 13:41 Respiratory Rate 20 09/11/24 13:41 Blood Pressure 154/79 H 09/11/24 13:41 Blood Pressure Mean 104 09/11/24 13:41 Blood Pressure Position Sitting 09/11/24 13:41 Pulse Oximetry 99 09/11/24 13:41 Oxygen Delivery Method Room Air 09/11/24 13:41 Vital Signs Temperature 96.8 F L 09/11/24 13:41 Pulse Rate 69 09/11/24 13:41 Respiratory Rate 20 09/11/24 13:41 Blood Pressure 154/79 H 09/11/24 13:41 Pulse Oximetry 99 09/11/24 13:41 Oxygen Delivery Method Room Air 09/11/24 13:41 Temperature 96.8 F L 09/11/24 13:41 Pulse Rate 58 L 09/11/24 17:02 Respiratory Rate 16 09/11/24 15:13 Blood Pressure 109/72 09/11/24 17:02 Pulse Oximetry 95 09/11/24 17:02 Oxygen Delivery Method Room Air 09/11/24 15:13 Medications Administered Medications: Discontinued Medications Generic Name Dose Route Start Last Admin Trade Name Freq PRN Reason Stop Dose Admin Hydrocodone Bitart/Acetaminophen 1 tab 09/11/24 16:19 09/11/24 16:22 Hydrocodone-Acetamin 5-325 Mg 1 Tab PO 09/11/24 16:20 1 tab ONCE ONE Administration Fentanyl 50 mcg 09/11/24 14:43 09/11/24 15:12 Fentanyl 100 Mcg/2 Ml Inj IVP 09/11/24 14:44 50 mcg ONCE ONE Administration Ondansetron HCl 4 mg 09/11/24 14:43 09/11/24 15:13 Ondansetron 2 Mg/Ml Inj IVP 09/11/24 14:44 4 mg ONCE ONE Administration Medical Decision Making MDM Narrative Medical decision making narrative: This is a very pleasant 64-year-old female was recently diagnosed with them fairly large meningioma. She is scheduled for surgical intervention in a couple of days next Sunday with Neurosurgery at [facility]. As part of her preop workup she had a cerebral angiogram done by Interventional Radiology at [place] today and developed a severe recurrent headache after the angiogram. She was able to discharge home from [facility] and then presented here to the ER in [place]. My initial concern was for possible intracranial hemorrhage related to the angiogram procedure. We sent the patient for stat noncontrast head CT and is fortunately negative for bleed. It does redemonstrate the meningioma and some vasogenic edema which sounds similar to her imaging from a couple of weeks ago. I do not feel the patient needs CT angiogram. She does not have any positional component of her headache to suggest CSF leak. No associated fever to raise concern for meningitis. In discussion with interventional radiologist he recommends supportive care and suspects that the headache was somehow triggered by the contrast administration to cranially. Patient's headache was improved with fentanyl and then [place] given here in the ER. We need stay away from aspirin NSAIDs given her impending neuro surgery a couple of days. Prescription for [place] given. Opiate precautions reviewed. Questions answered. Imaging Data CT scan - head: Attestation: I have reviewed the pertinent imaging results. Radiologist's impression: IMPRESSION: 1. A heavily calcified 4.5 centimeter posterior parafalcine meningioma. Local mass effect and adjacent vasogenic edema on the left. Discharge Plan Discharge Clinical Impression: Headache, Meningioma Patient Disposition: Home, Self-Care Condition: Stable Instructions: Acute Headache (DC) Additional Instructions: As we discussed, use [place] if needed to help treat headache. Be careful because [place] can cause dizziness, drowsiness, constipation, and can be addictive. Please follow-up with your neurosurgeons at [facility] as scheduled for your surgery. If you have any concerns such as worsening headache, confusion, vomiting, or any problems, please contact your neurosurgeon immediately or return to the ER right away to be rechecked. Prescriptions: New hydrocodone-acetaminophen 5-325 mg tablet 1 - 2 tab PO Q4-6H PRN (Reason: pain) Qty: 10 0RF ondansetron 4 mg tablet,disintegrating 4 mg PO Q8H PRN (Reason: nausea and vomiting) Qty: 10 0RF No Action metoprolol succinate 50 mg tablet extended release 24 hr 50 mg PO DAILY [id number]-srfupahzwkkex-zrlg 50-325-40 mg tablet PO All Day Allergy (cetirizine) 10 mg capsule 10 mg PO DAILY PRN citalopram 10 mg tablet 10 mg PO DAILY Follow Up/Referrals: Kasandra Quevedo MD [Primary Care Provider, Family Practice] Stand Alone Forms: [facility]i Info Instructions
[2024-09-11] MEDS: fentaNYL 100 MCG/2 ML inj 50 MCG IVP (15:12)
[2024-09-11] MEDS: ONDANSETRON 2 MG/ML inj 4 MG IVP (15:13)
[2024-09-11] MEDS: HYDROCODONE-ACETAMIN 5-325 MG 1 TAB PO (16:22)
== END 2024-09-11 17:19 | disposition home or self-care (01) ==
PROVIDERS: Emergency Provider Emergency Medicine; PCP Family Medicine
DX: R51.9 Headache, unspecified (principal); D32.9 Benign neoplasm of meninges, unspecified
CPT/HCPCS: 70450; 96374; 96375; 99283; 99284; A9270; J2405; J3010